=== PATIENT | female | born 1995 | race Hispanic/Latino ===

== ENCOUNTER 2017-09-28 20:46 | Emergency (ER) | payer BC, OTHER ==
--- NOTE | 2017-09-28 21:09 | EDPHYS ---
Physician Documentation [facility] Name: Oscar Aguilar Age: 22 yrs Sex: Female : 1995 Arrival Date: 09/28/2017 Time: 20:47 Bed 13 Private MD: ED Physician Imani Bernal HPI: 09/28 21:06 This 22 yrs old Female presents to ER via Ambulatory with complaints of Rash, ma2 Feet Swelling. 21:06 The patient's rash thought to be caused by allergies. The rash is located on the chest, ma2 right leg and left leg. The rash can be described as raised, urticarial. Onset: The symptoms/episode began/occurred gradually, 3 day(s) ago. Associated signs and symptoms: Pertinent positives: burning sensation, Pertinent negatives: fever, Pain swelling of lips, swelling of throat, swelling of tongue, vomiting, wheezing. Severity of symptoms: At their worst the symptoms were mild in the emergency department the symptoms are unchanged. The patient has not experienced similar symptoms in the past. 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 - Social history:: Smoking status: Patient/guardian denies using tobacco, Patient/guardian denies using alcohol, street drugs, The patient lives with family, . - Ebola Screening: : No symptoms or risks identified at this time. - Family history:: not pertinent. ROS: 21:06 Constitutional: Negative for fever, chills, and weight loss. ma2 21:06 Skin: Positive for lesions, Negative for abrasions, abscesses, discoloration, hematoma. 21:06 All other systems are negative. Exam: 21:06 Constitutional: This is a well developed, well nourished patient who is awake, alert, ma2 and in no acute distress. ENT: Nares patent. No nasal discharge, no septal abnormalities noted. Tympanic membranes are normal and external auditory canals are clear. Oropharynx with no redness, swelling, or masses, exudates, or evidence of obstruction, uvula midline. Mucous membranes moist. Chest/axilla: Normal chest wall appearance and motion. Nontender with no deformity. No lesions are appreciated. Cardiovascular: Regular rate and rhythm with a normal S1 and S2. No gallops, murmurs, or rubs. Normal PMI, no JVD. No pulse deficits. Respiratory: Lungs have equal breath sounds bilaterally, clear to auscultation and percussion. No rales, rhonchi or wheezes noted. No increased work of breathing, no retractions or nasal flaring. MS/ Extremity: Pulses equal, no cyanosis. Neurovascular intact. Full, normal range of motion. Neuro: Awake and alert, GCS 15, oriented to person, place, time, and situation. Cranial nerves II-XII grossly intact. Motor strength 5/5 in all extremities. Sensory grossly intact. Cerebellar exam normal. Normal gait. 21:06 Skin: raised hives over both legs and upper chest mild scattered . Vital Signs: 20:59 BP 129 / 80; Pulse 115; Resp 20; Temp 98; Pulse Ox 99% on R/A; Weight 158.76 kg (R); ak1 Height 5 ft. 0 in. (152.40 cm) (R); Pain 6/10; 20:59 Body Mass Index 68.35 (158.76 kg, 152.40 cm) ak1 MDM: 20:57 Patient medically screened. ma2 21:06 Differential diagnosis: impetigo, varicella, allergic reaction, carcinoma. Data ma2 reviewed: vital signs, nurses notes, EMS record. Counseling: I had a detailed discussion with the patient and/or guardian regarding: the historical points, exam findings, and any diagnostic results supporting the discharge/admit diagnosis, the presence of at least one elevated blood pressure reading (>120/80) during this emergency department visit, the need for outpatient follow up. Response to treatment: the patient's symptoms have markedly improved after treatment. Administered Medications: 21:17 Drug: Benadryl 50 mg Route: IM; Site: left deltoid; aa1 21:21 Follow up: Response: No adverse reaction; Medication administered at discharge. aa1 21:17 Drug: predniSONE 60 mg Route: PO; aa1 21:20 Follow up: Response: No adverse reaction; Medication administered at discharge. aa1 Disposition: 09/28/17 21:09 Discharged to Home. Impression: Allergic contact dermatitis. - Condition is Stable. - Discharge Instructions: Allergies, [id number]. - Prescriptions for Benadryl 25 mg Oral Capsule - take 2 capsule by ORAL route every 6 hours As needed; 60 tablet. Prednisone 20 mg Oral Tablet - take 3 tablet by ORAL route once daily for 5 days; 15 tablet. - Medication Reconciliation Form, Thank You Letter, Antibiotic Education, Prescription Opioid Use form. - Follow up: Private Physician; When: Tomorrow; Reason: Continuance of care. - Problem is new. - Symptoms have improved. Signatures: Guerita Shaw RN RN aa1 Edwige Elam RN RN ak1 Imani Bernal MD MD ma2 Corrections: (The following items were deleted from the chart) 21:27 21:09 09/28/2017 21:09 Discharged to Home. Impression: Allergic contact dermatitis. aa1 Condition is Stable. Forms are Medication Reconciliation Form, Thank You Letter, Antibiotic Education, Prescription Opioid Use. Follow up: Private Physician; When: Tomorrow; Reason: Continuance of care. Problem is new. Symptoms have improved. ma2
--- NOTE | 2017-09-28 21:09 | ER ---
Nurse's Notes [facility] Name: Oscar Aguilar Age: 22 yrs Sex: Female : 1995 Arrival Date: 09/28/2017 Time: 20:47 Bed 13 Private MD: Diagnosis: Allergic contact dermatitis Presentation: 09/28 21:00 Presenting complaint: Patient states: rash to bilateral feet since Thursday that itches. ak1 pt c/o bilateral feet swelling since Thursday. Transition of care: patient was not received from another setting of care. Onset of symptoms is unknown. Risk Assessment: Do you want to hurt yourself or someone else? Patient reports no desire to harm self or others. Care prior to arrival: None. 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 - Social history:: Smoking status: Patient/guardian denies using tobacco, Patient/guardian denies using alcohol, street drugs, The patient lives with family, . - Ebola Screening: : No symptoms or risks identified at this time. - Family history:: not pertinent. Screenin:10 Abuse screen: Denies threats or abuse. Denies injuries from another. Nutritional aa1 screening: No deficits noted. Tuberculosis screening: No symptoms or risk factors identified. Fall Risk None identified. Assessment: 21:10 General: Appears in no apparent distress. comfortable, obese, Behavior is calm, aa1 cooperative, appropriate for age. Pain: Denies pain. Neuro: Level of Consciousness is awake, alert, obeys commands, Gait is steady. Respiratory: Airway is patent Respiratory effort is even, unlabored, Respiratory pattern is regular, symmetrical. GI: No signs and/or symptoms were reported involving the gastrointestinal system. : No signs and/or symptoms were reported regarding the genitourinary system. EENT: No signs and/or symptoms were reported regarding the EENT system. Derm: Skin is intact, is healthy with good turgor, Skin is pink, warm \T\ dry. Musculoskeletal: Circulation, motion, and sensation intact. Capillary refill < 3 seconds, Range of motion: intact in all extremities, Swelling present in right foot and left foot. 21:22 Reassessment: Patient appears in no apparent distress at this time. Patient is alert, aa1 oriented x 3, equal unlabored respirations, skin warm/dry/pink. Discussed d/c \T\ f/u instructions with pt \T\ family; denies questions or concerns at this time. Vital Signs: 20:59 BP 129 / 80; Pulse 115; Resp 20; Temp 98; Pulse Ox 99% on R/A; Weight 158.76 kg (R); ak1 Height 5 ft. 0 in. (152.40 cm) (R); Pain 6/10; 20:59 Body Mass Index 68.35 (158.76 kg, 152.40 cm) ak1 ED Course: 20:47 Patient arrived in ED. ds1 20:57 Imani Bernal MD is Attending Physician. ma2 20:59 Guerita Shaw, WILMER is Primary Nurse. aa1 20:59 Arm band placed on Patient placed in an exam room, on a stretcher, Patient notified of ak1 wait time. 21:01 Triage completed. ak1 21:10 Patient has correct armband on for positive identification. Bed in low position. Call aa1 light in reach. Pulse ox on. NIBP on. 21:25 No provider procedures requiring assistance completed. Patient did not have IV access aa1 during this emergency room visit. Administered Medications: 21:17 Drug: Benadryl 50 mg Route: IM; Site: left deltoid; aa1 21:21 Follow up: Response: No adverse reaction; Medication administered at discharge. aa1 21:17 Drug: predniSONE 60 mg Route: PO; aa1 21:20 Follow up: Response: No adverse reaction; Medication administered at discharge. aa1 Outcome: 21:09 Discharge ordered by . ma2 21:25 Discharged to home ambulatory, with family. aa1 21:25 Condition: good 21:25 Discharge instructions given to patient, family, Instructed on discharge instructions, follow up and referral plans. medication usage, Demonstrated understanding of instructions, follow-up care, medications, Prescriptions given X 2. 21:27 Patient left the ED. aa1 Signatures: Guerita Shaw RN RN aa1 Heather Leach ds1 Edwige Elam RN RN ak1 Imani Bernal MD MD ma2
[2017-09-28] MEDS ORDERED: DIPHENHYDRAMINE 50 MG/ML VIAL ONE (21:14)
[2017-09-28] MEDS ORDERED: predniSONE 20 MG TAB ONE (21:14)
== END 2017-09-28 21:27 | disposition home or self-care (01) ==
LOC: ER 20:46
DX: L23.9 Allergic contact dermatitis, unspecified cause (principal)
CPT/HCPCS: 96372; 99283; J7512

== ENCOUNTER 2017-12-24 09:28 | Emergency (ER) | payer BC, OTHER ==
[2017-12-24 11:27] LABS: Absolute Lymphocytes (CBC) 1.5 K/uL (0.7-4.9); Absolute Neutrophil 4.9 K/uL (1.8-8.0); Eosinophils % 2.9 % (0-4.4); Hematocrit 43.9 % (36.0-45.0); Lymphocytes % 19.6 % (15.3-44.8); MCH 30.3 pg (27.0-35.0); MCV 86.8 fL (80-100); MPV 9.3 fL (7.6-11.3); Monocytes % 13.1 % (3.3-12.3); RBC Red Blood Cell Count 5.06 M/uL (3.86-4.86)
[2017-12-24 11:46] LABS: ALT/SGPT 61 U/L (12-78); AST/SGOT 41 U/L (15-37); Albumin 3.2 g/dL (3.4-5.0); Alkaline Phosphatase 53 U/L (45-117); BUN Blood Urea Nitrogen 4 mg/dL (7-18); Bicarbonate 25 mmol/L (21-32); Bilirubin Direct 0.2 mg/dL (0-0.2); Bilirubin Total 0.8 mg/dL (0.2-1.0); Glucose Level 98 mg/dL (74-106); Lipase 120 U/L (73-393); Potassium 3.4 mmol/L (3.5-5.1); Sodium Level 144 mmol/L (136-145)
[2017-12-24 12:13] LABS: Urine Blood 3+ (NEG); Urine Glucose NEGATIVE (NEG); Urine Protein TRACE (NEG); Urine Specific Gravity 1.025 (1.005-1.030); Urine pH 5.5 (5.0-7.0)
[2017-12-24] MEDS ORDERED: ONDANSETRON 4 MG/2 ML VIAL ONE (12:34)
--- NOTE | 2017-12-24 12:40 | RAD REPORT ---
EXAM DESCRIPTION: CT - Abdomen Pelvis W Contrast - 12/24/2017 12:29 pm CLINICAL HISTORY: Abdominal pain, diarrhea COMPARISON: None. TECHNIQUE: Biphasic, helical CT imaging of the abdomen and pelvis was performed following 100 ml non -ionic IV contrast. No oral contrast given. All CT scans are performed using dose optimization technique as appropriate and may include automated exposure control or mA/KV adjustment according to patient size. FINDINGS: No suspicious findings in the lung bases. The liver, spleen, and pancreas show no suspicious findings. Gallbladder and biliary tree are also wi thout suspicious finding. Gallstones can be occult on CT imaging. Symmetric renal function is seen with no hydronephrosis or suspicious renal mass. Renal parenchyma sh ows heterogeneity due to large body habitus. No convincing evidence for pyelonephritis. Urinary bladd er is contracted. Uterus and ovaries show no suspicious findings. No dilated bowel loops or bowel wall thickening. Appendix is not clearly defined. An acute GI process is not suspected. No free air, free fluid or inflammatory stranding. No hernia, mass or bulky lymph adenopathy. A few small nonspecific mesenteric lymph nodes are present. No adrenal abnormality. No suspicious bony findings. IMPRESSION: Contrast enhanced CT abdomen and pelvis showing no significant or suspicious finding. Detail is limited due to large body habitus.
--- NOTE | 2017-12-24 13:04 | ER ---
Nurse's Notes [facility] Name: Oscar Aguilar Age: 22 yrs Sex: Female : 1995 Arrival Date: 12/24/2017 Time: 09:31 Bed 30 Private MD: Diagnosis: Diarrhea, unspecified Presentation: 12/24 10:05 Presenting complaint: Patient states: "constant diarrhea x 2 weeks." Mid upper dm5 abdominal pain 8/10 at this time. Pt states that she has been taking Pepto but it hasn't helped at all. Transition of care: patient was not received from another setting of care. Onset of symptoms was December 10, 2017. Risk Assessment: Do you want to hurt yourself or someone else? Patient reports no desire to harm self or others. 10:05 Method Of Arrival: Ambulatory dm5 10:05 Acuity: JEFFREY 3 dm5 10:15 Initial Sepsis Screen: Does the patient meet any 2 criteria? No. Patient's initial iw sepsis screen is negative. Does the patient have a suspected source of infection? No. Patient's initial sepsis screen is negative. Care prior to arrival: None. Triage Assessment: 12:15 General: Appears in no apparent distress. Behavior is. Musculoskeletal: Range of iw motion: intact in all extremities. 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 - Social history:: Smoking status: Patient/guardian denies using tobacco. - Ebola Screening: : Patient negative for fever greater than or equal to 101.5 degrees Fahrenheit, and additional compatible Ebola Virus Disease symptoms Patient denies exposure to infectious person Patient denies travel to an Ebola-affected area in the 21 days before illness onset No symptoms or risks identified at this time. Screenin:03 Abuse screen: Denies threats or abuse. Denies injuries from another. Nutritional iw screening: No deficits noted. Tuberculosis screening: No symptoms or risk factors identified. Fall Risk IV access (20 points). Assessment: 12:03 Reassessment: pt transported to CT via wheelchair. iw 12:32 Reassessment: Patient appears in no apparent distress at this time. Patient and/or iw family updated on plan of care and expected duration. Pain level reassessed. Patient is alert, oriented x 3, equal unlabored respirations, skin warm/dry/pink. Patient denies pain at this time. 13:13 Pain: Denies pain. Neuro: Level of Consciousness is awake, alert, obeys commands. iw Vital Signs: 10:07 BP 145 / 99; Pulse 91; Resp 18; Temp 99; Pulse Ox 97% on R/A; Weight 113.4 kg; Height 5 dm5 ft. 2 in. (157.48 cm); Pain 8; 10:07 Body Mass Index 45.73 (113.40 kg, 157.48 cm) dm5 ED Course: 09:31 Patient arrived in ED. ph 10:07 Triage completed. dm5 10:07 Arm band placed on right wrist. Patient placed in waiting room. dm5 10:25 Cachorro Kramer PA is PHCP. [facility] 10:25 Valentin Terrell MD is Attending Physician. [facility] 10:47 Mili Jacobo, WILMER is Primary Nurse. iw 11:12 Initial lab(s) drawn, by me. Inserted saline lock: 24 gauge in left hand, using aseptic iw technique. 11:24 Placed in gown. Bed in low position. Call light in reach. Side rails up X 1. Warm jp3 blanket given. Pulse ox on. NIBP on. 11:50 Radiology exam delayed due to test not completed at this time. sj 12:16 Note: 22g diffusics to lt wrist. Patient moved to CT via wheelchair. sj 12:19 CT completed. Patient tolerated procedure well. Patient moved back from CT. sj 12:23 Note: 22 g dc'd due to infiltration at end of injection. less than 20cc infiltrated in sj arm, which was saline flusha t end. coban pressure was applied to lt wrist. 12:30 CT Abd/Pelvis - W/Contrast In Process Unspecified. EDMS 13:04 Nolan Bernard MD is Referral Physician. jmm 13:14 No provider procedures requiring assistance completed. IV discontinued, intact, iw bleeding controlled, No redness/swelling at site. Pressure dressing applied. Administered Medications: 12:32 Drug: Zofran 4 mg Route: IVP; Site: left hand; iw 13:00 Follow up: Response: No adverse reaction iw Outcome: 13:04 Discharge ordered by . priya 13:14 Discharged to home ambulatory, with family. iw 13:14 Condition: good 13:14 Discharge instructions given to patient, Instructed on discharge instructions, follow up and referral plans. medication usage, Demonstrated understanding of instructions, follow-up care, medications, Prescriptions given X 1. 13:20 Patient left the ED. iw Signatures: Dispatcher [employer] EDZayda Vargas, RN RN dm5 Cachorro Kramer PA PA jmm Jones, Susan sj Williams, Irene, RN RN Vi Moeller RN RN Tomas Bhat jp3 Corrections: (The following items were deleted from the chart) 09:33 09:31 Presenting complaint: ph ph
--- NOTE | 2017-12-24 13:05 | EDPHYS ---
Physician Documentation [facility] Name: Oscar Aguilar Age: 22 yrs Sex: Female : 1995 Arrival Date: 12/24/2017 Time: 09:31 Bed 30 Private MD: ED Physician Valentin Terrell HPI: 12/24 10:53 This 22 yrs old Female presents to ER via Ambulatory with complaints of jmm Diarrhea, Abdominal Pain, Fever. 10:53 The patient presents to the emergency department with diarrhea, abdominal pain. Onset: jmm The symptoms/episode began/occurred gradually, 1 week(s) ago. Possible causes: unknown. Associated signs and symptoms: Pertinent positives: abdominal pain, Pertinent negatives: vomiting. This is a 22 year old female with no chronic medical conditions that presents to the ED with abdominal pain, diarrhea beginning approx 1 week ago. Patient denies infectious exposure, recent travel, recent antibiotic use. . 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 - Social history:: Smoking status: Patient/guardian denies using tobacco. - Ebola Screening: : Patient negative for fever greater than or equal to 101.5 degrees Fahrenheit, and additional compatible Ebola Virus Disease symptoms Patient denies exposure to infectious person Patient denies travel to an Ebola-affected area in the 21 days before illness onset No symptoms or risks identified at this time. ROS: 10:53 Constitutional: Negative for fever, chills, and weight loss, Cardiovascular: Negative jmm for chest pain, palpitations, and edema, Respiratory: Negative for shortness of breath, cough, wheezing, and pleuritic chest pain. 10:53 MS/Extremity: Negative for injury and deformity, Skin: Negative for injury, rash, and discoloration, Neuro: Negative for headache, weakness, numbness, tingling, and seizure. 10:53 Abdomen/GI: Positive for abdominal pain, diarrhea. 10:53 All other systems are negative. Exam: 10:53 Head/Face: atraumatic. Eyes: EOMI, no conjunctival erythema appreciated ENT: Moist [facility] Mucus Membranes Neck: Trachea midline, Supple Chest/axilla: Normal chest wall appearance and motion. Cardiovascular: Regular rate and rhythm. No edema appreciated Respiratory: Normal respirations, no respiratory distress appreciated 10:53 Constitutional: The patient appears in no acute distress, alert, awake. 10:53 Abdomen/GI: Inspection: obese Bowel sounds: normal, Palpation: soft, mild abdominal tenderness, in the epigastric area. 10:53 Back: ROM is normal. 10:53 Musculoskeletal/extremity: ROM: intact in all extremities. 10:53 Skin: Appearance: Color: normal in color. 10:53 Neuro: Orientation: is normal, Mentation: is normal, Memory: is normal. 10:53 Psych: Behavior/mood is pleasant, cooperative. Vital Signs: 10:07 BP 145 / 99; Pulse 91; Resp 18; Temp 99; Pulse Ox 97% on R/A; Weight 113.4 kg; Height 5 dm5 ft. 2 in. (157.48 cm); Pain 8/10; 10:07 Body Mass Index 45.73 (113.40 kg, 157.48 cm) dm5 MDM: 10:52 Patient medically screened. [facility] 13:04 Data reviewed: vital signs, nurses notes. Counseling: I had a detailed discussion with priya the patient and/or guardian regarding: the historical points, exam findings, and any diagnostic results supporting the discharge/admit diagnosis, radiology results, the need for outpatient follow up, to return to the emergency department if symptoms worsen or persist or if there are any questions or concerns that arise at home. 13:04 Data reviewed: lab test result(s), radiologic studies, CT scan. [facility] 13:04 ED course: Patient is alert and non toxic in appearance in the ED on discharge. Patient yamini encouraged to take probiotics and follow up with GI for further evaluation. Patient is otherwise given strict return precautions. Patient and family understood and agrees with the plan of care. . 12/24 10:52 Order name: Basic Metabolic Panel; Complete Time: 11:52 [facility] 12/24 10:52 Order name: CBC with Diff; Complete Time: 11:44 [facility] 12/24 10:52 Order name: Creatinine for Radiology; Complete Time: 11:44 [facility] 12/24 10:52 Order name: Hepatic Function; Complete Time: 11:52 [facility] 12/24 10:52 Order name: Lipase; Complete Time: 11:52 [facility] 12/24 12:04 Order name: Urine Dipstick--Ancillary (enter results); Complete Time: 12:14 eb 12/24 10:52 Order name: IV Saline Lock; Complete Time: 11:10 [facility] 12/24 10:52 Order name: Labs collected and sent; Complete Time: 11:10 [facility] 12/24 10:53 Order name: CT Abd/Pelvis - W/Contrast; Complete Time: 12:48 [facility] 12/24 12:04 Order name: Urine --Ancillary (enter results); Complete Time: 12:14 eb Administered Medications: 12:32 Drug: Zofran 4 mg Route: IVP; Site: left hand; iw 13:00 Follow up: Response: No adverse reaction iw Disposition: 12/24/17 13:04 Discharged to Home. Impression: Diarrhea, unspecified. - Condition is Stable. - Discharge Instructions: Food Choices to Help Relieve Diarrhea, Adult, Diarrhea, Adult. - Prescriptions for Bentyl 20 mg Oral Tablet - take 1 tablet by ORAL route every 6 hours As needed; 20 tablet. - Medication Reconciliation Form, Thank You Letter, Antibiotic Education, Prescription Opioid Use form. - Follow up: Nolan Bernard MD; When: 2 - 3 days; Reason: Recheck today's complaints, Continuance of care, Re-evaluation by your physician. - Notes: Please take a probiotic such as Florastor daily. Return to the ED if symptoms worsen, if you develop vomiting, if you develop worsening pain, or if you have any other concerning symptoms. Addendum: 12/26/2017 13:25 Co-signature as Attending Physician, Valentin Terrell MD I agree with the assessment and k dr plan of care. Signatures: Dispatcher [employer] Zayda Sanabria, WILMER RN dmValentin Joy MD MD kdr Mickail, Joel, PA PA jmm Williams, Irene, WILMER RN iw Corrections: (The following items were deleted from the chart) 12/24 13:20 13:04 12/24/2017 13:04 Discharged to Home. Impression: Diarrhea, unspecified. Condition iw is Stable. Forms are Medication Reconciliation Form, Thank You Letter, Antibiotic Education, Prescription Opioid Use. Follow up: Nolan Bernard; When: 2 - 3 days; Reason: Recheck today's complaints, Continuance of care, Re-evaluation by your physician. priya
== END 2017-12-24 13:20 | disposition home or self-care (01) ==
LOC: ER 09:28
DX: R19.7 Diarrhea, unspecified (principal)
CPT/HCPCS: 36415; 74177; 80048; 80076; 81003; 81025; 83690; 85025; 96374; 99284; J2405; Q9967